=== PATIENT | female | born 1960 | race Caucasian/White ===

== ENCOUNTER 2016-09-11 15:34 | Observation (INO) | payer MEDICARE, MEDICAID ==
[~2016-09-11] VITALS: Ht 162.6 cm; Wt 65.9 kg
[2016-09-11 16:44] LABS: BLOOD UREA NITROGEN 19 mg/dL (7-18)
[2016-09-11 16:46] LABS: ACETAMINOPHEN < 2 mcg/mL (10-30)
[2016-09-11 17:44] LABS: DAU SCREEN DISCLAIMER
[2016-09-11] MEDS ORDERED: BISACODYL 10 MG SUPP PR PRN (20:00)
[2016-09-11] MEDS ORDERED: DIPHENHYDRAMINE 50 MG CAPSULE PO PRN (20:00)
[2016-09-11] MEDS ORDERED: ACETAMINOPHEN 325 MG TABLET PO PRN (20:00)
[2016-09-11] MEDS ORDERED: POLYETHYLENE GLYCOL 17 GM PACKET PO PRN (20:00)
[2016-09-11] MEDS ORDERED: ONDANSETRON ODT 4 MG PO PRN (20:00)
[2016-09-11] MEDS: LORazepam 1MG TABLET PO PRN (21:34)
[2016-09-12 01:10] VITALS: BP 120/72
[2016-09-12] MEDS: LORazepam 1MG TABLET PO PRN (01:13)
[2016-09-12 08:00] VITALS: BP 117/75
[2016-09-12] MEDS ORDERED: SEROQUEL MC SCH (08:00)
[2016-09-12] MEDS ORDERED: QUETIAPINE 25MG TABLET PO PRN (08:00)
[2016-09-12] MEDS ORDERED: OLANZAPINE 10 MG TABLET PO PRN ×2 (08:30)
[2016-09-12] MEDS ORDERED: SENNA/DOCUSATE TABLET PO SCH (09:00)
== END 2016-09-12 11:15 ==
LOC: ED 16:57 → EDIP 19:02 → 3E 21:24
PROVIDERS: ADMIT Internal Medicine; ATTEND Internal Medicine
DX: R45.851 Suicidal ideations (principal); F31.9 Bipolar disorder, unspecified; F41.1 Generalized anxiety disorder
CPT/HCPCS: 36415; 80048; 80307; 80329; 82040; 85025; 99285; G0378; G0480